=== PATIENT | female | born 1980 | race Caucasian/White ===

== ENCOUNTER 2016-12-16 16:34 | Emergency (ER) | payer OTHER ==
[2016-12-16 16:45] VITALS: BP 128/68; PULSE 86; RESP 18; TEMP 99
--- NOTE | 2016-12-16 17:27 | XR ---
EXAMINATION TYPE: XR wrist limited LT DATE OF EXAM: 12/16/2016 COMPARISON: NONE HISTORY: Crush injury. Pain. TECHNIQUE: 2 views FINDINGS: I see no fracture nor dislocation. Joint spaces are normal. IMPRESSION: Negative left wrist exam.
--- NOTE | 2016-12-16 17:27 | XR ---
EXAMINATION TYPE: XR forearm LT DATE OF EXAM: 12/16/2016 COMPARISON: NONE HISTORY: Crush injury pain TECHNIQUE: 2 views FINDINGS: Radius and ulna appear intact. I see no fracture. IMPRESSION: Negative left forearm exam.
[2016-12-16] MEDS ORDERED: ACETAMINOPHEN TAB 325 MG TAB PO STA (17:28)
--- NOTE | 2016-12-16 17:37 | ED ---
Upper Extremity HPI - General Chief Complaint: Extremity Injury, Upper Stated Complaint: [facility]-Hand Injury Time Seen by Provider: 12/16/16 16:48 Source: patient Mode of arrival: ambulatory Limitations: no limitations - History of Present Illness Initial Comments: Patient is a 36-year-old left handed female presenting to the emergency department with chief complaint of left hand, wrist, and forearm pain. Patient states that she was holding her hand in a door frame when the door slammed on hand. Onset of injury at 11 PM last night. She is currently complaining of sharp pain rated 6 out of 10, exacerbated with movement, relieved with rest. Patient states she's been applying ice and took ibuprofen approximately 4 hours prior to arrival. Patient denies previous surgery or fracture to left upper extremity. Patient denies recent illness, fevers, nausea , vomiting, shortness of breath, chest pain, or abdominal pain. Patient denies numbness or tingling. Place: work - Related Data Allergies Allergy/AdvReac Type Severity Reaction Status Date / Time No Known Allergies Allergy Verified 12/16/16 16:45 Review of Systems ROS Statement: Those systems with pertinent positive or pertinent negative responses have been documented in the HPI. ROS Other: All systems not noted in ROS Statement are negative. Past Medical History Past Medical History: No Reported History History of Any Multi-Drug Resistant Organisms: None Reported Past Surgical History: Section Additional Past Surgical History / Comment(s): ganglion cyst on left wrist, left knee Past Psychological History: No Psychological Hx Reported Smoking Status: Never smoker Past Alcohol Use History: None Reported Past Drug Use History: None Reported General Exam Limitations: no limitations General appearance: alert, in no apparent distress Head exam: Present: atraumatic, normocephalic, normal inspection Eye exam: Present: normal appearance ENT exam: Present: normal exam Neck exam: Present: normal inspection, full ROM. Absent: tenderness Respiratory exam: Present: normal lung sounds bilaterally. Absent: respiratory distress, wheezes, rales, rhonchi, stridor, decreased breath sounds Cardiovascular Exam: Present: regular rate, normal rhythm, normal heart sounds. Absent: systolic murmur GI/Abdominal exam: Present: soft, normal bowel sounds. Absent: distended Left Shoulder Exam: Present: normal inspection, full ROM. Absent: tenderness, swelling Upper Arm exam: Present: normal inspection, full ROM. Absent: tenderness, swelling Elbow exam: Present: normal inspection, full ROM. Absent: tenderness, swelling Forearm Wrist exam: Present: full ROM, tenderness. Absent: swelling, abrasion, ecchymosis, deformity Hand Wrist exam: Present: normal inspection, full ROM (Pain with flexion.), tenderness (Tenderness to left forearm, left wrist, and left hand.). Absent: swelling, abrasion, ecchymosis Neuro motor exam: Present: wrist extension intact, thumb opposition intact Neurosensory exam: Present: radial nerve intact, ulnar nerve intact, median nerve intact Vascular: Present: normal capillary refill, radial pulse, brachial pulse, ulnar pulse. Absent: vascular compromise Back exam: Present: normal inspection Neurological exam: Present: alert, oriented X3, normal gait, other (No focal deficits noted) Psychiatric exam: Present: normal affect, normal mood Skin exam: Present: warm, dry, intact, normal color Course Vital Signs 12/16/16 16:41 Temperature 99 F Pulse Rate 86 Respiratory 18 Rate Blood Pressure 128/68 O2 Sat by Pulse 98 Oximetry Medical Decision Making - Medical Decision Making Contusion of left hand, left wrist, left forearm. X-rays with no acute fractures or dislocations. Patient instructed to continue ice, Motrin, elevation, and compression. Patient instructed to follow-up with primary care physician. Patient instructed to follow-up with orthopedic service if pain persist in 7-10 days. Discharge instructions reviewed and return parameters reviewed. Patient agrees with treatment plan. - Radiology Data Radiology results: report reviewed X-ray left wrist: No fracture or dislocation. Joint spaces are normal. X-ray left forearm: Radius and ulnar. Intact. No fracture. Negative left forearm x-ray. X-ray left hand: No fracture or dislocation. Joint spaces are normal. No pathologic calcifications. Disposition Clinical Impression: Contusion of left forearm, Contusion of multiple sites of left hand and wrist Disposition: HOME SELF-CARE Condition: Good Instructions: Contusion in Adults (ED) Additional Instructions: Continue ice, elevation, compression, and Motrin. Follow-up with primary care physician as directed. If pain persist in 7-10 days follow-up with orthopedic service. Please return to the emergency department if symptoms do not improve or get worse. Referrals: None,Stated [Primary Care Provider] - 1-2 days Pardeep Brody MD [STAFF PHYSICIAN] - 1-2 days Time of Disposition: 18:23
--- NOTE | 2016-12-16 18:12 | XR ---
EXAMINATION TYPE: XR hand complete LT DATE OF EXAM: 12/16/2016 COMPARISON: NONE HISTORY: Crush injury TECHNIQUE: 3 views FINDINGS: I see no fracture nor dislocation. Joint spaces are normal. There are no pathologic calcifi cations. IMPRESSION: Negative left hand exam.
[2016-12-16] MEDS ORDERED: IBUPROFEN 800 MG TAB PO STA (18:15)
== END 2016-12-16 18:35 | disposition home or self-care (01) ==
LOC: EC 16:34
DX: S50.12XA Contusion of left forearm, initial encounter (principal); S60.212A Contusion of left wrist, initial encounter; W23.0XXA Caught, crushed, jammed, or pinched between moving objects, initial encounter; Y93.89 Activity, other specified; Y99.0 Civilian activity done for income or pay; Y92.69 Other specified industrial and construction area as the place of occurrence of the external cause
CPT/HCPCS: 73090; 73100; 73130; 99283; L4350